=== PATIENT | female | born 1935 | race Caucasian/White ===

== ENCOUNTER → 2016-09-04 | Outpatient (CLI) | payer OTHER ==
[~2016-09-04] MED LIST: CHOL1TAB46 PO; CMD5 PO; COEN1CAP17 PO; CYAN100T6 PO; KRIL1CAP3 PO; LPR25 PO; NIAC1TAB PO; OMEG12006 PO
--- NOTE | 2016-09-04 11:12 | DIAGNOSTIC IMAGING REPORT ---
CT SCAN OF THE BRAIN WITHOUT IV CONTRAST CLINICAL HISTORY: Change in mental status. Forgetfulness. COMPARISON STUDY: No priors. TECHNIQUE: Unenhanced axial CT scan of the brain is performed from the vertex to the skull base. CT DOSE: 558.98 mGy.cm FINDINGS: Brain parenchyma: There are age-related involutional changes noting minimal subcortical and periventricular microangiopathic change. There is no hemorrhage, mass effect, or evidence of acute territorial ischemia by CT criteria. Guillermo-white matter is preserved. No extra-axial fluid collection is seen. Ventricles, sulci, cisterns: Prominent secondary to involutional change. Intracranial vasculature: There is mild atherosclerotic calcification of the cavernous carotid arteries. Calvarium: Unremarkable. Sinuses and mastoids: The visualized paranasal sinuses are clear. The mastoid air cells are well pneumatized. Orbits: The bony orbits are grossly intact. There is a right ocular lens implant. IMPRESSION: There is no hemorrhage, mass effect, or evidence of acute territorial ischemia by CT criteria. Electronically signed by: Rishi Ramos M.D. 09/04/2016 11:11 AM Dictated Date/Time: 09/04/2016 11:09 AM
== END | disposition home or self-care (01) ==
LOC: C.CTS 10:54
PROVIDERS: ATTEND Internal Medicine
DX: R68.89 Other general symptoms and signs (principal); I48.0 Paroxysmal atrial fibrillation

== ENCOUNTER 2017-08-10 16:13 | Emergency (ER) | payer OTHER, MEDICARE ==
[~2017-08-10] VITALS: Ht 162.6 cm; Wt 56.6 kg
[2017-08-10 16:17] VITALS: TEMP 36.7; Ht 162.6 cm; Wt 56.6 kg
[2017-08-10] MEDS ORDERED: ASPIRIN 81 MG CHEW PO STA (16:25)
[2017-08-10 16:37] VITALS: O2SAT 96
[2017-08-10 16:45] LABS: BASO ABS # 0.06 K/uL (0-0.2); EOS ABS # 0.23 K/uL (0-0.5); HEMATOCRIT 38.9 % (37-47); HEMOGLOBIN 13.2 g/dL (12.0-16.0); IG# 0.01 K/uL (0.00-0.02); LYMPH % 35.1 %; LYMPH ABS # 2.03 K/uL (1.2-3.4); MEAN CELL VOLUME 91.1 fL (80-100); MEAN CORPUSCULAR HEMOGLOBIN 30.9 pg (25-34); MEAN CORPUSCULAR HGB CONC 33.9 g/dl (32-36); MEAN PLATELET VOLUME 9.6 fL (7.4-10.4); MONO % 12.8 %; MONO ABS # 0.74 K/uL (0.11-0.59); NEUT % 46.9 %; NEUT ABS # 2.71 K/uL (1.4-6.5); PLATELET COUNT 208 K/uL (130-400); RED CELL DISTRIBUTION WIDTH CV 13.3 % (11.5-14.5); RED CELL DISTRIBUTION WIDTH SD 43.9 fL (36.4-46.3); WHITE BLOOD COUNT 5.78 K/uL (4.8-10.8)
[2017-08-10 16:54] LABS: PTT PATIENT 25.7 SECONDS (21.0-31.0)
[2017-08-10] MEDS ORDERED: MULT-506 PO (16:57)
[2017-08-10] MEDS ORDERED: APIX1TAB PO (16:58)
[2017-08-10] MEDS ORDERED: ASPI325T45 PO (17:01)
--- NOTE | 2017-08-10 17:01 | DIAGNOSTIC IMAGING REPORT ---
CHEST ONE VIEW PORTABLE HISTORY: 81 years-old Female CHEST PAIN acute atypical chest pain COMPARISON: Portable chest radiograph 02/20/2014 TECHNIQUE: Portable AP view of the chest FINDINGS: Cardiomediastinal and hilar silhouettes are within normal limits. Atherosclerosis of the aorta. No pneumothorax, pleural effusion, focal airspace consolidation or overt pulmonary edema. There are calcifications of the tracheobronchial tree. Bones of the chest appear grossly intact. IMPRESSION: No acute process. The above report was generated using voice recognition software. It may contain grammatical, syntax or spelling errors. Electronically signed by: Bhanu Gilliam M.D. 08/10/2017 5:00 PM Dictated Date/Time: 08/10/2017 4:58 PM
[2017-08-10 17:02] LABS: ALBUMIN 3.6 gm/dl (3.4-5.0); ALT/SGPT 22 U/L (12-78); BLOOD UREA NITROGEN 12 mg/dl (7-18); CALCIUM 9.3 mg/dl (8.5-10.1); CARBON DIOXIDE 30 mmol/L (21-32); CREATININE 0.67 mg/dl (0.60-1.20); GLUCOSE 84 mg/dl (70-99); LIPASE 149 U/L (73-393); POTASSIUM 3.6 mmol/L (3.5-5.1); SODIUM 134 mmol/L (136-145)
[2017-08-10] MEDS ORDERED: XLTOPS OPB (17:02)
[2017-08-10 17:07] LABS: ALKALINE PHOSPHATASE 54 U/L (45-117); AST/SGOT 20 U/L (15-37)
[2017-08-10 17:56] VITALS: BP 126/75; PULSE 78; O2SAT 98
--- NOTE | 2017-08-10 18:07 | EMERGENCY ROOM VISIT NOTE ---
History Report prepared by Toney: Eric Yan Under the Supervision of: Dr. Saroj Cabral D.O. First contact with patient: 16:19 Chief Complaint: CHEST PAIN Stated Complaint: HEART PAIN, ELEVATED BP- HX A FIB, LOW O2 History of Present Illness The patient is a 81 year old female who presents to the Emergency Room with complaints of intermittent chest pain beginning yesterday. She states that her pain initially felt like heart-burn. She states that her pain worsened during the night last night, so she took an aspirin which improved her symptoms. The patient began experiencing her pain again 1.5 hours ago. She describes per pain as "mild". Her pain is worsened with exertion. The patient has a history of A- fib. Her most recent stress test was around 20 years ago. She is on Eliquis. The patient denies new shortness of breath. Source of History: patient Onset: Yesterday Position: chest Symptom Intensity: mild Timing: intermittent Modifying Factors (Worsening): exertion Modifying Factors (Relieving): other (Aspirin) Associated Symptoms: No SOB (new) Review of Systems See HPI for pertinent positives & negatives. A total of 10 systems reviewed and were otherwise negative. Past Medical & Surgical Medical Problems: (1) Atrial fibrillation (2) Bronchitis (3) Pneumonia Surgical Problems: (1) History of hysterectomy (2) Hx of tonsillectomy Family History GI bleeding MOTHER Stroke FATHER Social History Smoking Status: Never Smoker Alcohol Use: occasionally Marital Status: Housing Status: lives with significant other Occupation Status: retired Current/Historical Medications Scheduled Apixaban (Eliquis), 2.5 MG PO BID Coenzyme Q10 (Ubidecarenone) (Co Q 10), 100 MG PO DAILY Latanoprost (Latanoprost), 1 DROP OPB DAILY Multivitamin (Multivitamin), 1 TAB PO DAILY Kaplan-3 Fatty Acids (Kaplan 3), 1,000 MG PO DAILY Scheduled PRN Aspirin (Aspirin), 325 MG PO DAILY PRN for Pain or Fever Allergies Coded Allergies: Dairy (Verified Allergy, Unknown, GI upset, 08/10/17) Erythromycin (Verified Allergy, Unknown, RASH, 08/10/17) Gluten (Verified Allergy, Unknown, GI upset, 08/10/17) Tetracycline (Unverified Allergy, Unknown, unknown, 08/10/17) Physical Exam Vital Signs Date Time Temp Pulse Resp B/P (MAP) Pulse Ox O2 Delivery O2 Flow Rate FiO2 08/10/17 17:56 78 18 126/75 98 08/10/17 17:29 77 18 133/76 96 Room Air 08/10/17 16:52 96 Room Air 08/10/17 16:51 77 08/10/17 16:37 96 Room Air 08/10/17 16:37 96 Room Air 08/10/17 16:17 36.7 93 18 153/83 96 Room Air Physical Exam GENERAL: Patient is awake, alert, and in no acute distress. Patient is resting comfortably and showing no signs of anxiety EYES: The conjunctivae are clear. The pupils are round and reactive. EARS, NOSE, MOUTH AND THROAT: The nose is without any evidence of any deformity. Mucous membranes are moist tongue is midline NECK: The neck is nontender and supple. RESPIRATORY: Normal respiratory effort is noted there is no evidence of wheezing rhonchi or rales CARDIOVASCULAR: Regular rate and rhythm to auscultation. Systolic murmur suggested. GASTROINTESTINAL: The abdomen is soft. Bowel sounds are present in all quadrants. Abdomen is nontender MUSCULOSKELETAL/EXTREMITIES: There is no evidence of gross deformity full range of motion is noted in the hips and shoulders SKIN: There is no obvious evidence of any rash. There are no petechiae, pallor or cyanosis noted. NEUROLOGIC: Patient is awake alert and oriented x3 Medical Decision & Procedures ER Provider Diagnostic Interpretation: Radiology results as stated below per my review and radiologist interpretation: CHEST ONE VIEW PORTABLE FINDINGS: Cardiomediastinal and hilar silhouettes are within normal limits. Atherosclerosis of the aorta. No pneumothorax, pleural effusion, focal airspace consolidation or overt pulmonary edema. There are calcifications of the tracheobronchial tree. Bones of the chest appear grossly intact. IMPRESSION: No acute process. The above report was generated using voice recognition software. It may contain grammatical, syntax or spelling errors. Electronically signed by: Bhanu Gilliam M.D. 08/10/2017 5:00 PM Laboratory Results 08/10/17 16:25 Red Blood Count 4.27, Mean Corpuscular Volume 91.1, Mean Corpuscular Hemoglobin 30.9, Mean Corpuscular Hemoglobin Concent 33.9, Mean Platelet Volume 9.6, Neutrophils (%) (Auto) 46.9, Lymphocytes (%) (Auto) 35.1, Monocytes (%) (Auto) 12.8, Eosinophils (%) (Auto) 4.0, Basophils (%) (Auto) 1.0, Neutrophils # (Auto ) 2.71, Lymphocytes # (Auto) 2.03, Monocytes # (Auto) 0.74, Eosinophils # (Auto ) 0.23, Basophils # (Auto) 0.06 08/10/17 16:25 Test 08/10/17 16:25 White Blood Count 5.78 K/uL (4.8-10.8) Red Blood Count 4.27 M/uL (4.2-5.4) Hemoglobin 13.2 g/dL (12.0-16.0) Hematocrit 38.9 % (37-47) Mean Corpuscular Volume 91.1 fL (80-100) Mean Corpuscular Hemoglobin 30.9 pg (25-34) Mean Corpuscular Hemoglobin Concent 33.9 g/dl (32-36) Platelet Count 208 K/uL (130-400) Mean Platelet Volume 9.6 fL (7.4-10.4) Neutrophils (%) (Auto) 46.9 % Lymphocytes (%) (Auto) 35.1 % Monocytes (%) (Auto) 12.8 % Eosinophils (%) (Auto) 4.0 % Basophils (%) (Auto) 1.0 % Neutrophils # (Auto) 2.71 K/uL (1.4-6.5) Lymphocytes # (Auto) 2.03 K/uL (1.2-3.4) Monocytes # (Auto) 0.74 K/uL (0.11-0.59) Eosinophils # (Auto) 0.23 K/uL (0-0.5) Basophils # (Auto) 0.06 K/uL (0-0.2) RDW Standard Deviation 43.9 fL (36.4-46.3) RDW Coefficient of Variation 13.3 % (11.5-14.5) Immature Granulocyte % (Auto) 0.2 % Immature Granulocyte # (Auto) 0.01 K/uL (0.00-0.02) Prothrombin Time 10.0 SECONDS (9.0-12.0) Prothromb Time International Ratio 1.0 (0.9-1.1) Activated Partial Thromboplast Time 25.7 SECONDS (21.0-31.0) Partial Thromboplastin Ratio 1.0 Anion Gap 7.0 mmol/L (3-11) Est Creatinine Clear Calc Drug Dose 58.8 ml/min Estimated GFR () 96.9 Estimated GFR (Non- 83.6 BUN/Creatinine Ratio 17.7 (10-20) Calcium Level 9.3 mg/dl (8.5-10.1) Total Bilirubin 0.4 mg/dl (0.2-1) Direct Bilirubin 0.1 mg/dl (0-0.2) Aspartate Amino Transf (AST/SGOT) 20 U/L (15-37) Alanine Aminotransferase (ALT/SGPT) 22 U/L (12-78) Alkaline Phosphatase 54 U/L (45-117) Troponin I < 0.015 ng/ml (0-0.045) Total Protein 7.0 gm/dl (6.4-8.2) Albumin 3.6 gm/dl (3.4-5.0) Lipase 149 U/L (73-393) Laboratory results per my review. Medications Administered Medications (Trade) Dose Ordered Sig/Raul Route Start Time Stop Time Status Last Admin Dose Admin Aspirin (Aspirin Chew) 324 mg NOW STAT PO 08/10/17 16:25 08/10/17 16:26 DC 08/10/17 16:31 324 MG ECG Indication: chest pain Rate (beats per minute): 78 Rhythm: normal sinus Findings: no acute ischemic change, no ectopy Comparison ECG Date: 02/21/2014 Change: no significant change ED Course 1621: The patient was evaluated in room C10. A complete history and physical examination were performed. 1625: Ordered Aspirin Chew 324 mg PO. 1755: Upon reevaluation, the patient is resting comfortably. I discussed the results and treatment plan with her. She verbalized agreement of the treatment plan. The patient was discharged home. Medical Decision Differential diagnosis: Etiologies such as cardiac ischemia, aortic dissection, pulmonary embolism, pneumonia, pneumothorax, musculoskeletal, infections, pericarditis, myocarditis , esophageal rupture, gastrointestinal, as well as others were entertained. Heart score of 4. Nursing notes reviewed. The patient is a 81-year-old female who presented to the emergency department for evaluation of chest discomfort. The patient states that she was having chest discomfort throughout last evening. It continues into today. She called her primary delivery analyst I was instructed to come to the emergency department. At this time the patient's EKG does not show any significant changes consistent with ischemia and her initial troponin is negative. I discussed the patient's laboratory and radiographic studies with her. I also discussed the limitations of the emergency department workup for chest pain with her. I discussed her presentation with her primary delivery analyst. At this time a the patient requests to be discharged home so she may follow-up with her primary delivery analyst for an outpatient workup. I explained to her that this is not ideal and that given her past medical history as well as her heart score she may require further troponin measurements as well as an inpatient provocative test but the patient was feeling much better and requested to be discharged home. I discussed this with her primary delivery analyst and he will try to set the patient up for a stress test as soon as possible. The patient was encouraged to rest and avoid any strenuous activity. She was also encouraged to continue all medications as prescribed and return to the emergency department immediately if symptoms change worsening the need arises. Medication Reconcilliation Current Medication List: was personally reviewed by me Blood Pressure Screening Patient's blood pressure: Elevated blood pressure Blood pressure disposition: Elevated BP felt to be situational Consults Time Called: [phone] Consulting Physician: Dr. Alaniz - Cardiology Returned Call: [phone] I discussed the patient's case with Dr. Alaniz. He feels that the patient would be safe for discharge. He will schedule the patient for a stress test. Impression Primary Impression: Chest pain Scribe Attestation The scribe's documentation has been prepared under my direction and personally reviewed by me in its entirety. I confirm that the note above accurately reflects all work, treatment, procedures, and medical decision making performed by me. Departure Information Dispostion Home / Self-Care Referrals Anabela THURSTON M.D. (PCP) Forms Call Back Authorization, HOME CARE DOCUMENTATION FORM, IMPORTANT VISIT INFORMATION Patient Instructions ED Chest Pain Atypical Unkn Cause, My [facility] Additional Instructions Continue all medications as prescribed. Rest and avoid any strenuous activity. Follow-up with your delivery analyst as scheduled. Return to the emergency department immediately if symptoms change worsen or the need arises. Problem Qualifiers Primary Impression: Chest pain Chest pain type: unspecified Qualified Codes: R07.9 - Chest pain, unspecified
== END 2017-08-10 17:57 | disposition home or self-care (01) ==
LOC: C.EDB 16:15 → C.EDC 17:57
DX: R07.9 Chest pain, unspecified (principal); I48.91 Unspecified atrial fibrillation; Z87.01 Personal history of pneumonia (recurrent); Z83.79 Family history of other diseases of the digestive system; Z82.49 Family history of ischemic heart disease and other diseases of the circulatory system; Z79.01 Long term (current) use of anticoagulants; Z79.899 Other long term (current) drug therapy; Z91.011 Allergy to milk products; Z88.1 Allergy status to other antibiotic agents; Z91.018 Allergy to other foods